=== PATIENT | female | born 1945 | race Caucasian/White ===

== ENCOUNTER 2017-07-26 21:53 | Emergency (ER) | payer MEDICARE, BC ==
[2017-07-26] MEDS ORDERED: Lidocaine 1% PF 5 ML VIAL ONE (23:31)
[2017-07-26] MEDS ORDERED: Lidocaine 1% w/Epinephrine 1:100K 20 ML VIAL ONE (23:59)
--- NOTE | 2017-07-27 | RAD ---
THREE VIEWS RIGHT HAND: Indication: Tripped and fell slicing hand on a 1,2,3 Listoja wet primer powder blender. FINDINGS: Imaged remote appearing traumatic injury involving the triquetrum. There is two small ossific fragmen ts seen along the dorsal aspect of the ulnocarpal articulation. One of the intraarticular bodies diana ures 4.5 mm. The additional measures 2.3 mm. There is no acute fracture or subluxation evident. There is scattered osteoarthrosis of the right hand. IMPRESSION: No acute osseous abnormality. Chronic findings as above. POS: [facility]
[2017-07-27] MEDS ORDERED: Adacel (T-DAP) 0.5 ML VIAL ONE (00:05)
== END 2017-07-27 00:51 | disposition home or self-care (01) ==
LOC: ERS 21:53
DX: S61.412A Laceration without foreign body of left hand, initial encounter (principal); R20.2 Paresthesia of skin; E78.5 Hyperlipidemia, unspecified; E03.9 Hypothyroidism, unspecified; E11.9 Type 2 diabetes mellitus without complications; Z79.899 Other long term (current) drug therapy; Z79.4 Long term (current) use of insulin; W26.8XXA Contact with other sharp object(s), not elsewhere classified, initial encounter
CPT/HCPCS: 12002; 90471; 90715; J2001

== ENCOUNTER 2017-08-14 09:41 | Day surgery (SDC) | payer MEDICARE, BC ==
[2017-08-13 10:41] VITALS: BMI 41.1
[2017-08-14 12:56] LABS: #Eosinphils 0.2 thou/uL (0.0-0.7); #Lymphocytes 2.2 thou/uL (1.20-3.40); #Monocytes 0.6 thou/uL (0.11-0.59); #Neutrophils 2.8 thou/uL (1.40-6.50); %Basophils 0.6 % (0.0-1.0); %Eosinophils 3.7 % (0.0-10.0); %Monocytes 9.9 % (0.0-10.0); %Neutrophils 47.8 % (42.0-75.0); Hemoglobin 13.6 g/dL (12.0-16.0); Mean Corpuscular HGB CONC 35.5 g/dL (32.0-36.0); Mean Corpuscular Hemoglobin 30.9 pg (27.0-31.0); Mean Corpuscular Volume 86.8 fl (81.0-99.0); Mean Platelet Volume 8.8 fL (7.4-10.4); Platelet Count 112 thou/uL (130-400); RBC Distribution Width 11.2 % (11.5-14.5); Red Blood Cell (RBC) Count 4.41 mill/uL (4.20-5.40); White Blood Cell (WBC) Count 5.8 thou/uL (4.8-10.8)
[2017-08-14 13:10] LABS: Anion Gap 10 mmol/L (10-20); BUN (Urea Nitrogen) 18 mg/dL (9.8-20.1); Calc. Creatinine Clearance 143 mL/min (70-130); Calcium 9.7 mg/dL (7.8-10.44); Carbon Dioxide 28 mmol/L (23-31); Chloride 108 mmol/L (98-107); Estimated GFR-MDRD Greater than 90; Glucose 69 mg/dL (80-115); Potassium 3.9 mmol/L (3.5-5.1); Sodium 142 mmol/L (136-145)
[2017-08-14] MEDS ORDERED: Dextrose 50% Abboject 50 ML SYRINGE ONE (13:23)
[2017-08-14 13:35] LABS: Bilirubin Negative (Negative); Blood, Urine Negative (Negative); Clarity CLOUDY (Clear); Glucose, Urine (Dipstick) Negative (Negative); Leukocyte Negative (Negative); Nitrite Negative (Negative); Protein, Urine (Dipstick) Negative (Neg-Trace); Specific Gravity, Urine 1.018 (1.002-1.036); Urobilinogen 0.2 mg/dL (0.2-1.0)
[2017-08-14 13:42] LABS: Bacteria/HPF 1+ HPF (None Seen); Hyaline Casts/LPF 4-6 HYALINE CAST LPF (0-3 Hyaline); Pathc Cast-AUWi Flag 1.59 (0-2.49); RBC/HPF 0-3 HPF (0-3); WBC/HPF 0-3 HPF (0-3)
[2017-08-14] MEDS ORDERED: Ondansetron HCl/PF 4 MG/2 ML Vial ONE ×2 (13:43→17:25)
[2017-08-14] MEDS ORDERED: Bacitracin Zinc Ointment 30 gm TUBE ONE (13:45)
[2017-08-14] MEDS ORDERED: Bupivacaine PF 0.5% 30 ML VIAL ONE (13:45)
[2017-08-14] MEDS ORDERED: Betamet Acet/Betamet Na Ph 30 MG/5 ML VIAL ONE (13:45)
[2017-08-14] MEDS ORDERED: Fentanyl 100 MCG/2 ML VIAL ONE (13:46)
[2017-08-14] MEDS ORDERED: CEFAZOLIN/Water 2 GM/20 ML SYRINGE ONE (13:56)
[2017-08-14] MEDS ORDERED: Metoclopramide HCl 10 MG/2 ML VIAL ONE ×2 (13:56→17:25)
[2017-08-14] MEDS ORDERED: Ketorolac Tromethamine 30 MG/ML VIAL ONE ×2 (16:08→17:25)
[2017-08-14] MEDS ORDERED: ePHEDrine/0.9% NaCl/PF SYRINGE 50 mg/10 ml ONE (17:25)
[2017-08-14] MEDS ORDERED: Lidocaine 1% PF 5 ML VIAL ONE (17:25)
[2017-08-14] MEDS ORDERED: PROPOFOL 200 MG/20 ML VIAL ONE (17:25)
--- NOTE | 2017-08-15 16:59 | OP ---
DATE OF PROCEDURE: 08/14/2017 PREOPERATIVE DIAGNOSIS: Right index finger and long finger digital nerve laceration with the long fi nger being radial and the index finger being ulnar, thus occupying near the common digital nerve bran bharathi point. FINDINGS: Just distal to the branching point, individual laceration of both nerves have listed invol ving the second webspace. PROCEDURES PERFORMED: 1. Digital nerve neuroplasty long finger, radial side. 2. Digital nerve repair microscopic, long finger, radial side. 3. Digital nerve neuroplasty, index finger, ulnar side. 4. Digital nerve microscopic repair, index finger, ulnar side. 5. There will be removal of sutures of intraoperative, not by the surgical placing. ESTIMATED BLOOD LOSS: 5 mL. INJECTABLE: A 5 mL before and 15 after the procedure with the wound closed. ANESTHESIA: General LMA technique augmented by 15 mL 0.5% Marcaine block, 10 before the incision and 15 afterwards. DESCRIPTION OF PROCEDURE: After successful general LMA technique by [place] Anesthesia as listed ab ove, the limb was prepped and draped. Timeout was done appropriately. We removed the previous Prole ne sutures placed by another provider, and then Dr. Wallace began zigzag incision involving the 1 cm laceration going distally and a Felice's guide incisions. With tourniquet we had excellent visuali zation, we could found that there was hematoma around a partial left radial almost 50% long finger ra dial digital nerve while the small finger ulnar digital nerve was lacerated after neuroplasty reveale d this with a heavy hematoma around it and then we could easily see the gap formation. Resectable ph ase of nerve as needed 1 mm or less to perform ankle repair and then began with a 9-0 Ethibond suture first for the index finger, nerve without involving the long finger or other fingers. Then, once we completed the index finger, using same microscopic techniques to repair. The patient then had a bul ky dressing applied. It was confirmed with full extension and tension on the nerve repair and there was none, then left the operating room with a splint almost a dorsal block at -2 degrees MP joint ext ension, completely cover wound and no evidence of anesthetic or operative complication.
--- NOTE | 2017-08-16 08:53 | EKG ---
Test Reason : PREOP Blood Pressure : / mmHG Vent. Rate : 059 BPM Atrial Rate : 059 BPM P-R Int : 178 ms QRS Dur : 102 ms QT Int : 408 ms P-R-T Axes : 053 -07 080 degrees QTc Int : 403 ms Sinus bradycardia Nonspecific T wave abnormality Abnormal ECG Confirmed by FOZIA CORTEZ MD ([id number]) on 08/16/2017 8:53:35 AM Referred By: ELIZABETH Confirmed By:FOZIA CORTEZ MD
== END 2017-08-14 17:47 | disposition home or self-care (01) ==
LOC: SDC 09:41
PROVIDERS: ATTEND Orthopaedic Surgery Hand Surgery
PROC: 01Q60ZZ Repair Radial Nerve, Open Approach (ICD-10-PCS; principal; 2017-08-14)
PROC: 01Q40ZZ Repair Ulnar Nerve, Open Approach (ICD-10-PCS; 2017-08-14)
DX: S64.490A Injury of digital nerve of right index finger, initial encounter (principal); S64.492A Injury of digital nerve of right middle finger, initial encounter; S60.221A Contusion of right hand, initial encounter; E10.9 Type 1 diabetes mellitus without complications; E03.9 Hypothyroidism, unspecified; Z79.82 Long term (current) use of aspirin; Z79.899 Other long term (current) drug therapy
CPT/HCPCS: 80048; 81001; 85025; 93005; 93010; J0131; J0702; J1885; J2001; J2405; J2704; J2765; J3010; S0020

== ENCOUNTER 2017-10-27 14:47 | Outpatient (CLI) | payer MEDICARE, BC ==
--- NOTE | 2017-10-27 15:38 | RAD ---
TWO VIEWS RIGHT HIP: DATE: 10/27/17. HISTORY: Right hip pain after a fall in July 2017. FINDINGS: There is right hip osteoarthritis. No acute fracture or dislocation is seen. Degenerative changes i n the pubic symphysis with mild right sacroiliac joint osteoarthritis. Phleboliths overlie the right hemipelvis. Calcifications overlie the lateral subcutaneous soft tissues which may represent inject ion granulomata. Questionable linear focus of gas density overlying the right gluteal region lateral to the right iliac wing. IMPRESSION: 1. Osteoarthritis right hip without evidence of an acute osseous abnormality. 2. Question of subcutaneous gas lateral aspect right hip. This could be artifactual, but correlatio n for a recent injection or injury is suggested. POS: [facility]
== END 2017-10-27 14:48 | disposition home or self-care (01) ==
LOC: TBSIIMAG 14:47
PROVIDERS: ATTEND Neurological Surgery
DX: M25.551 Pain in right hip (principal); M16.11 Unilateral primary osteoarthritis, right hip

== ENCOUNTER 2017-11-19 12:10 | Outpatient (CLI) | payer MEDICARE, BC ==
[~2017-11-19 12:10] MED LIST: Gadobenate Dimeglumine 529 MG/1 ML (20ML VIAL) ONE
[2017-11-19 13:07] LABS: Estimated GFR-MDRD - POC Greater than 90
== END 2017-11-19 12:11 | disposition home or self-care (01) ==
LOC: BICMRI 12:10
PROVIDERS: ATTEND Neurological Surgery
DX: M51.16 Intervertebral disc disorders with radiculopathy, lumbar region (principal); M48.061 Spinal stenosis, lumbar region without neurogenic claudication
CPT/HCPCS: 72158; 82565; A9579

== ENCOUNTER 2018-11-24 12:50 | Outpatient (CLI) | payer OTHER | END 2018-11-24 12:51 | disposition home or self-care (01) | LOC: DTY/OP 12:50 | PROVIDERS: ATTEND Surgery | DX: E66.01 Morbid (severe) obesity due to excess calories (principal) | CPT/HCPCS: 97802 ==

== ENCOUNTER 2018-12-14 10:13 | Outpatient (CLI) | payer MEDICARE, BC ==
--- NOTE | 2018-12-14 12:05 | RAD ---
EXAM: Chest PA and lateral: HISTORY: Preoperative exam COMPARISON: 06/28/2011 FINDINGS: Heart: Normal cardiac silhouette Aorta: Unremarkable Pulmonary vessels: Normal Costophrenic angles: Costophrenic angles are clear. Lungs: No masses or consolidation. Chronic changes of the lung parenchyma. Pneumothorax: No pneumothorax Osseous structures: No osseous abnormalities. Right humeral prosthesis is noted. IMPRESSION: No acute cardiopulmonary process.
[2018-12-14 12:20] LABS: #Eosinphils 0.1 thou/uL (0.0-0.7); #Lymphocytes 2.1 thou/uL (1.20-3.40); #Monocytes 0.6 thou/uL (0.11-0.59); #Neutrophils 3.8 thou/uL (1.40-6.50); %Basophils 0.4 % (0.0-1.0); %Eosinophils 1.9 % (0.0-10.0); %Lymphocytes 31.7 % (21.0-51.0); %Monocytes 9.1 % (0.0-10.0); Hemoglobin 14.2 g/dL (12.0-16.0); Mean Corpuscular HGB CONC 33.1 g/dL (32.0-36.0); Mean Corpuscular Hemoglobin 29.3 pg (27.0-31.0); Mean Corpuscular Volume 88.5 fL (78.0-98.0); Mean Platelet Volume 9.6 fL (7.4-10.4); Platelet Count 122 thou/uL (130-400); RBC Distribution Width 11.7 % (11.5-14.5); Red Blood Cell (RBC) Count 4.84 mill/uL (4.20-5.40); White Blood Cell (WBC) Count 6.6 thou/uL (4.8-10.8)
[2018-12-14 12:28] LABS: Hemoglobin A1c 6.9 % (4.0-6.0)
[2018-12-14 12:43] LABS: ALT (SGPT) 32 U/L (8-55); AST (SGOT) 34 U/L (5-34); Albumin 4.3 g/dL (3.4-4.8); Alkaline Phosphatase 50 U/L (40-150); Anion Gap 14 mmol/L (10-20); BUN (Urea Nitrogen) 24 mg/dL (9.8-20.1); Bilirubin, Direct 0.4 mg/dL (0.1-0.3); Bilirubin, Total 0.6 mg/dL (0.2-1.2); Calc. Creatinine Clearance 0 mL/min (70-130); Calcium 9.7 mg/dL (7.8-10.44); Carbon Dioxide 23 mmol/L (23-31); Chloride 103 mmol/L (98-107); Estimated GFR-MDRD 82; Globulin 2.8 g/dL (2.4-3.5); Glucose 123 mg/dL (83-110); Protein, Total 7.1 g/dL (6.0-8.3); Sodium 136 mmol/L (136-145)
== END 2018-12-14 10:14 | disposition home or self-care (01) ==
LOC: LABBT 10:13
PROVIDERS: ATTEND Surgery
DX: Z01.818 Encounter for other preprocedural examination (principal); E11.9 Type 2 diabetes mellitus without complications; Z68.42 Body mass index [BMI] 45.0-49.9, adult
CPT/HCPCS: 71046; 80053; 80076; 83036; 85025; 93005; 93010

== ENCOUNTER 2018-12-14 11:00 | Inpatient (IN) | payer MEDICARE, BC ==
[2018-12-23] MEDS ORDERED: Heparin 5,000 UNITS/ML VIAL ONE (08:36)
[2018-12-23] MEDS ORDERED: Scopolamine 1.5 mg/72 hour Patch ONE (10:02)
[2018-12-23] MEDS ORDERED: Fentanyl 100 MCG/2 ML VIAL ONE ×3 (10:02→12:39)
[2018-12-23] MEDS ORDERED: Bupivacaine/Epinephrine 0.25% 30 ML VIAL ONE (10:12)
[2018-12-23] MEDS ORDERED: Ondansetron HCl/PF 4 MG/2 ML Vial IVP PRN (11:50)
[2018-12-23] MEDS ORDERED: Promethazine HCl 25 MG/ML VIAL IM PRN ×3 (11:50→12:22)
[2018-12-23] MEDS ORDERED: Promethazine HCl 25 MG/ML VIAL SLOW IVP PRN (11:50)
[2018-12-23] MEDS ORDERED: Dextrose 50% Abboject 50 ML SYRINGE SLOW IVP PRN (12:10)
[2018-12-23] MEDS ORDERED: Ondansetron PF 4 MG/2 ML Vial IVP PRN ×2 (12:10→12:22)
[2018-12-23] MEDS ORDERED: hydrALAZINE 20 MG/ML VIAL SLOW IVP PRN (12:10)
[2018-12-23] MEDS ORDERED: Hydrocodone-Acetamin 15 ML UDCUP PO PRN (12:10)
[2018-12-23] MEDS ORDERED: Dextrose 5% in Water 1,000 ML IV PRN (12:10)
[2018-12-23] MEDS ORDERED: diphenhydrAMINE 50 MG/ML VIAL IVP PRN (12:10)
[2018-12-23] MEDS ORDERED: Naloxone HCl 0.4 mg/ml Vial IV PRN (12:22)
[2018-12-23] MEDS ORDERED: fentaNYL Citrate/PF 2,000 MCG in Sodium Chloride 0.9% 60 ML IV PRN (12:22)
[2018-12-23] MEDS ORDERED: diphenhydrAMINE 50 MG/ML VIAL IM/IV PRN (12:22)
[2018-12-23] MEDS ORDERED: diphenhydrAMINE 25 MG CAP PO PRN (12:22)
[2018-12-23] MEDS ORDERED: Zolpidem Tartrate 5 MG TAB PO PRN (12:22)
[2018-12-23 15:18] VITALS: BMI 44.7
[2018-12-23] MEDS ORDERED: CEFAZOLIN 2 GM in Premix Bag 1 BAG IVPB SCH (16:00)
[2018-12-23] MEDS: CEFAZOLIN 2 GM in Premix Bag 1 BAG IVPB SCH (17:05)
[2018-12-23] MEDS: Ketorolac Tromethamine 30 MG/ML VIAL IVP SCH ×2 (17:05→23:43)
[2018-12-23] MEDS: D5 1/2 NS w/20 mEq KCL 1,000 ML IV SCH ×2 (17:05→20:18)
[2018-12-24] MEDS: D5 1/2 NS w/20 mEq KCL 1,000 ML IV SCH ×2 (00:33→04:03)
[2018-12-24] MEDS: CEFAZOLIN 2 GM in Premix Bag 1 BAG IVPB SCH (00:33)
[2018-12-24 05:26] LABS: #Eosinphils 0.1 thou/uL (0.0-0.7); #Lymphocytes 1.6 thou/uL (1.20-3.40); #Monocytes 0.6 thou/uL (0.11-0.59); #Neutrophils 4.1 thou/uL (1.40-6.50); %Basophils 0.2 % (0.0-1.0); %Eosinophils 0.9 % (0.0-10.0); %Lymphocytes 24.8 % (21.0-51.0); %Monocytes 9.7 % (0.0-10.0); %Neutrophils 64.4 % (42.0-75.0); Mean Corpuscular HGB CONC 34.5 g/dL (32.0-36.0); Mean Corpuscular Hemoglobin 30.6 pg (27.0-31.0); Mean Corpuscular Volume 88.8 fL (78.0-98.0); Mean Platelet Volume 9.7 fL (7.4-10.4); Platelet Count 96 thou/uL (130-400); RBC Distribution Width 11.2 % (11.5-14.5); Red Blood Cell (RBC) Count 3.91 mill/uL (4.20-5.40); White Blood Cell (WBC) Count 6.3 thou/uL (4.8-10.8)
[2018-12-24] MEDS: Ketorolac Tromethamine 30 MG/ML VIAL IVP SCH ×2 (05:29→11:51)
[2018-12-24 05:47] LABS: Anion Gap 9 mmol/L (10-20); BUN (Urea Nitrogen) 11 mg/dL (9.8-20.1); Calc. Creatinine Clearance 133 mL/min (70-130); Calcium 8.5 mg/dL (7.8-10.44); Carbon Dioxide 23 mmol/L (23-31); Chloride 107 mmol/L (98-107); Estimated GFR-MDRD 88; Glucose 181 mg/dL (83-110); Potassium 3.9 mmol/L (3.5-5.1); Sodium 135 mmol/L (136-145)
--- NOTE | 2018-12-24 07:47 | PDOC.GSPN ---
Surgery Progress Note: Subj - Subjective Narrative: Postoperative day 1: Patient is doing well with no abdominal pain. Some discomfort over the incision sites. She has been able to get and walk around in the hallways. She has not passed any flatus nor had a bowel movement. She denies any shortness of breath, nausea or vomiting. Patient remains NPO. No complaints brought up. Surgery Progress Note: Obj - Vital signs Vital signs: Vital Signs - Most Recent Temp Pulse Resp BP Pulse Ox 98.4 F 80 18 162/77 H 96 12/24/18 03:52 12/24/18 03:52 12/24/18 03:52 12/24/18 03:52 12/24/18 03:52 - Physical Exam General: no distress ENT: no congestion, normal pinna Neck: no bruits, no lymphadectomy Cardiovascular: regular rate and rhythm Respiratory: clear to auscultation, breath sounds present Abdomen: soft, non tender, positive bowel sounds Wound: dressing clean,dry,intact, healing well Surgery Progress Note: Results - Labs Result Diagrams: 12/24/18 04:53 12/24/18 04:53 Lab results: Laboratory Results - last 24 hr 12/23/18 12/24/18 12/24/18 20:57 04:53 04:53 WBC 6.3 RBC 3.91 L Hgb 12.0 Hct 34.8 L MCV 88.8 MCH 30.6 MCHC 34.5 RDW 11.2 L Plt Count 96 L MPV 9.7 Neutrophils % 64.4 Neutrophils % (Manual) Not Reportable Lymphocytes % 24.8 Monocytes % 9.7 Eosinophils % 0.9 Basophils % 0.2 Neutrophils # 4.1 Lymphocytes # 1.6 Monocytes # 0.6 H Eosinophils # 0.1 Basophils # 0.0 Sodium 135 L Potassium 3.9 Chloride 107 Carbon Dioxide 23 Anion Gap 9 L BUN 11 Creatinine 0.66 Estimated GFR (MDRD) 88 Glucose 181 H POC Glucose 151 H Calcium 8.5 Surgery Progress Note: A/P - Problem (1) Status post gastrectomy Current Visit: Yes Status: Acute - Plan Plan: keep monitoring the patient. Will keep an eye on blood pressure since it has been elevated during the night, but it is normal on the latest reading. Will advance to clear liquids when patient experiences flatus. Encourage ambulation and use of the incentive spirometer. Continue with maintenance fluids. Will order a gastrograffin swallow study today.
--- NOTE | 2018-12-24 08:20 | OP ---
DATE OF PROCEDURE: 12/23/2018 PREOPERATIVE DIAGNOSIS: Morbid obesity. PROCEDURE PERFORMED: Laparoscopic sleeve gastrectomy with esophagogastroscopy. INDICATIONS: A 73-year-old female, morbidly obese, who has attempted multiple weight loss programs without success. FINDINGS: 38-Palestinian bougie used. DESCRIPTION OF PROCEDURE: After informed consent was obtained, the patient was taken to the operating room and given general endotracheal anesthesia and placed in supine position. Abdomen was prepped and draped in the usual fashion. Local anesthesia infiltrated subcutaneously and deep. A 12 mm incision was performed approximately 8 inches above the xiphoid slightly to the left. Veress needle inserted. Drop test performed. Pneumoperitoneum was created to a volume of 2 L of carbon dioxide. Utilizing a bladeless 12-mm trocar and 0-degree laparoscope, direct visual entry in the abdominal cavity was performed. Pneumoperitoneum was then created to a pressure of 15 mmHg and the patient placed in steep reverse Trendelenburg position. Lary liver retractor inserted. Left lobe of the liver retracted superiorly. The pylorus identified. A 12 mm port placed on the right beneath it and two 12s placed left subcostal. The omentum was taken off the greater curvature 5 cm from the pylorus utilizing the LigaSure. Short gastrics divided with LigaSure and left crura defined with LigaSure. A 38-Palestinian bougie inserted, directed into the antrum. The linear 60-mm green-load stapler was used to divide the antrum to the bougie, gold load along the bougie, and a series of blues through the angle of His. Intraoperative endoscopy performed. The video endoscope inserted under direct vision and advanced into the sleeve. Staple line inspected. There was no bleeding. Staple line then tested by inflating the new stomach with pressurized air under water. There was no air leak. Stomach decompressed. Scope removed. The remnant stomach was removed from the abdomen through the left lateral port site. The fascia closed with 0 Vicryl suture and the GraNee needle. Trocars and retractors removed. Skin closed with interrupted 4-0 Rapide. Dermabond applied. The patient tolerated the procedure well, transferred to Recovery in good condition. Sponge and needle count verified correct x2. Job ID: [id number]
--- NOTE | 2018-12-24 08:27 | RAD ---
15 cc Gastrografin swallow: 12/24/2018 COMPARISON: None HISTORY: Evaluate for leak or obstruction following gastric sleeve procedure FINDINGS: The patient ingested 15 cc of Gastrografin. Contrast media traverses the gastroesophageal j unction without delay. Contrast media fills the postoperative stomach with no evidence for leak or obstruction. Contrast media extends into proximal duodenum. IMPRESSION: No evidence for leak or obstruction following gastric sleeve procedure.
[2018-12-24] MEDS ORDERED: Enoxaparin Sodium 40 MG/0.4 ML SYRINGE SC SCH (09:00)
[2018-12-24] MEDS ORDERED: Pantoprazole 40 MG VIAL IVP SCH (09:00)
[2018-12-24 12:21] VITALS: BP 131/74; TEMP 98.1
--- NOTE | 2018-12-25 02:48 | DIS ---
DATE OF ADMISSION: 12/23/2018 DATE OF DISCHARGE: 12/24/2018 DISCHARGE DIAGNOSIS: Morbid obesity. PROCEDURES DURING ADMISSION: Laparoscopic sleeve gastrectomy, intraoperative esophagogastroscopy, and postoperative Gastrografin swallow. HOSPITAL COURSE: The patient was admitted, taken to the operating room where she underwent a sleeve gastrectomy. Postoperatively, she has done well. X-ray was fine. Started on liquids, tolerating well. She is discharged home on hydrocodone and Zofran. She will follow up with me in 2 weeks. Job ID: [id number]
== END 2018-12-24 12:20 | disposition home or self-care (01) | DRG 621 ==
LOC: SURG A 12-23 07:39
PROVIDERS: ADMIT Surgery; ATTEND Surgery
PROC: 0DB64Z3 Excision of Stomach, Percutaneous Endoscopic Approach, Vertical (ICD-10-PCS; principal; 2018-12-23)
DX: E66.01 Morbid (severe) obesity due to excess calories (principal); Z68.41 Body mass index [BMI] 40.0-44.9, adult; E11.9 Type 2 diabetes mellitus without complications; I10 Essential (primary) hypertension; E78.5 Hyperlipidemia, unspecified; E03.9 Hypothyroidism, unspecified; M19.90 Unspecified osteoarthritis, unspecified site; Z90.710 Acquired absence of both cervix and uterus; Z79.4 Long term (current) use of insulin; Z79.82 Long term (current) use of aspirin; Z79.899 Other long term (current) drug therapy
CPT/HCPCS: 36415; 36416; 74241; 80048; 85025; 88307; 88312; 94760; C9113; J0690; J1644; J1650; J1885; J3010; J3490

== ENCOUNTER 2019-04-22 10:32 | Outpatient (CLI) | payer MEDICARE, BC ==
--- NOTE | 2019-04-22 10:55 | RAD ---
THREE VIEWS LUMBAR SPINE: COMPARISON: 03/25/2016. HISTORY: Lumbar stenosis. Neurogenic claudication. FINDINGS: Five lumbar-type vertebrae. Moderate loss of disc space height and osteophyte formation at L2-L3. Mil d degenerative change at L1-L2. Spondylolisthesis: L2-L3: Neutral: 4.1 mm of retrolisthesis, flexion 3.7 mm of retrolisthesis, extension 2.9 mm of retro listhesis. L4-L5: 2.9 mm of anterolisthesis, flexion 4.3 mm of anterolisthesis, extension 2.9 mm of anterolisthe sis. Degenerative changes of posterior elements at L3-L4, L4-L5 and L5-S1. When compared to the previous examination, the degree of spondylolisthesis has developed. IMPRESSION: Spondylolisthesis which has developed since the previous examination. Transcribed Date/Time: 04/22/2019 11:33 AM
--- NOTE | 2019-04-22 11:21 | MRI ---
MRI LUMBAR SPINE NONCONTRAST: HISTORY: Lumbar stenosis with neurogenic claudication. Low back pain that wraps around into the left groin. COMPARISON: 03/25/2016. FINDINGS: Appropriate T1 marrow signal intensity of the lumbar vertebrae. Lumbar spine vertebral body height is maintained. No fracture. Stable intrinsic T1 and T2 hyperintense focus along the right aspect of the T12 vertebral body, compatible with hemangioma. There are type I Modic changes along the left asp ect of the L2-L3 disc space. Previously noted type I Modic changes along the right aspect of the L3-L4 disc space currently have signal characteristics is compatible with type II Modic changes. Spondylolisthesis: L1-L2: 2 mm or retrolisthesis. L2-L3: 4.5 mm of retrolisthesis. L3-L4: 5.2 mm of retrolisthesis. L4-L5: 1.9 mm of anterolisthesis. Conus medullaris terminates at the L1-L2 disc space. Appropriate signal intensity of the visualized paraspinal muscles and solid organs. Laminectomy defect at L2-L3, L3-L4, L4-L5. T12-L1:Adequate disc hydration. No significant central canal stenosis or significant neural foraminal narrowing. L1-L2:Desiccation with mild loss of disc space height. Broad-based disc bulge, ligament flavum thicke jean pierre and facet hypertrophy result in mild central canal stenosis. Mild to moderate bilateral neural foraminal narrowing. L2-L3:Disc desiccation with mild loss of disc space height. Posterior laminectomy defect. No signific ant central canal stenosis. Moderate to severe bilateral neural foraminal narrowing. L3-L4:Desiccation with severe loss of disc space height. Broad-based disc bulge. Posterior laminectom y defect. No significant central canal stenosis. Moderate to severe right and left neural foraminal narrowing. L4-L5:Desiccation with mild loss of disc space height. Broad-based disc bulge with a midline inferior disc extrusion. There is encroachment upon both subarticular zones with mass effect upon bilateral traversing L5 nerve roots. Posterior laminectomy defect is identified. There is moderate to severe ce ntral canal stenosis. Right greater than left facet hypertrophy with fluid in both facet joints. Moderate to severe right and moderate left neural foraminal narrowing. L5-S1:Desiccation with moderate loss of disc space height. Broad-based disc bulge with a central disc protrusion. There is encroachment upon both subarticular zones, left greater than right. There is a small annular fissure involving the disc at the level of the left subarticular zone, adjacent to th e traversing left S1 nerve root. No significant stenosis of the thecal sac. Moderate right and moderate to severe left neural foraminal narrowing. IMPRESSION: 1. Multilevel spondylolisthesis as above. 2. Multilevel laminectomy defects as above. 3. Moderate to severe central canal stenosis at L4-L5. Narrowing of both subarticular zones with mass effect upon bilateral traversing L5 nerve roots. 4. Small annular fissure involving the L5-S1 disc, at the level of the left subarticular zone. The an nular fissure is adjacent to traversing left S1 nerve root. Transcribed Date/Time: 04/22/2019 11:45 AM
== END 2019-04-22 10:33 | disposition home or self-care (01) ==
LOC: TBSIIMAG 10:32
PROVIDERS: ATTEND Nurse Practitioner Family
DX: M48.062 Spinal stenosis, lumbar region with neurogenic claudication (principal); M43.16 Spondylolisthesis, lumbar region; Q05.7 Lumbar spina bifida without hydrocephalus; Z98.890 Other specified postprocedural states
CPT/HCPCS: 72100; 72148

== ENCOUNTER 2019-07-01 07:17 | Day surgery (SDC) | payer MEDICARE, BC ==
[2019-06-30 10:03] VITALS: BMI 33.3
--- NOTE | 2019-06-30 19:03 | HP ---
HISTORY OF PRESENT ILLNESS: Ms. Lopez is known to our practice lumbar decompression who returns now with a combination of symptoms axial back pain that is just off to the left as well as neurogenic claudication. She has been treating this with epidural steroid injections by Dr. Bermudez, which were helpful up until fall of this past year as well as Tylenol 3, which she feels takes the edge off enough to get some rest at night. She denies any obvious radicular pain and no numbness to either lower extremity. Pain is worsened with standing or walking. She feels her legs tire out and getting wobbly. She has a new MRI that reveals prior surgery from L3-L5 as well as multilevel stenosis to varying degrees, most significant at L4-L5 where she has severe lateral recess stenosis and [id number] central canal stenosis. PHYSICAL EXAMINATION: GENERAL: She is alert and oriented x3. NEUROLOGICAL: Gait is stooped and severely antalgic. Lower extremity motor exam is normal. PAST MEDICAL HISTORY: Significant for diabetes, chronic pain syndrome, osteoarthritis. PAST SURGICAL HISTORY: Hand surgery, hysterectomy, lumbar decompression, bilateral knee replacement, shoulder replacement. CURRENT MEDICATIONS: Humalog, Tarceva, simvastatin, fosinopril, hydrochlorothiazide, Synthroid, gabapentin, tramadol, Tylenol. ALLERGIES: NO KNOWN DRUG ALLERGIES. ASSESSMENT: Spinal stenosis. PLAN: Dr. Kuo met with the patient, reviewed imaging, advocated for L4-L5 decompression. He explained to the patient the risks, benefits, and alternatives to the procedure. The patient expressed understanding and elected to move forward with surgery as discussed. I do believe the patient is mentally competent and capable of making medical decisions for herself. We will move forward with surgery as planned. Job ID: [id number]
[2019-07-01] MEDS ORDERED: Bupivacaine PF 0.5% 30 ML VIAL ONE (10:13)
[2019-07-01] MEDS ORDERED: Thrombin 5000 UNITS/5 ML VIAL ONE (10:13)
[2019-07-01] MEDS ORDERED: EPINEPHrine 1 MG/ML AMP ONE (10:13)
[2019-07-01] MEDS ORDERED: Dexamethasone 20 MG/5 ML VIAL ONE (10:26)
[2019-07-01] MEDS ORDERED: Rocuronium Bromide 10 MG/ML (10ML VIAL) ONE (10:26)
[2019-07-01] MEDS ORDERED: Glycopyrrolate 0.2 MG/ML 5 ML SYRINGE ONE (10:26)
[2019-07-01] MEDS ORDERED: PHENYLEPHRINE-NS 100 MCG/ML 10 ML SYRINGE ONE (10:26)
[2019-07-01] MEDS ORDERED: Ondansetron PF 4 MG/2 ML Vial ONE (10:26)
[2019-07-01] MEDS ORDERED: PROPOFOL 200 MG/20 ML VIAL ONE (10:26)
[2019-07-01] MEDS ORDERED: Lidocaine 1% PF 5 ML VIAL ONE (10:26)
[2019-07-01] MEDS ORDERED: EPHEDRINE 25 MG/5 ML SYRINGE ONE (10:26)
[2019-07-01] MEDS ORDERED: Fentanyl 100 MCG/2 ML VIAL ONE ×2 (10:26→11:47)
[2019-07-01] MEDS ORDERED: Polyethylene Glycol OPTH DROP 15 ML BOT L EYE PRN (14:22)
--- NOTE | 2019-07-01 14:53 | OP ---
DATE OF PROCEDURE: 07/01/2019 LITHOGRAPH PRINTER: Adama Alarcon PA-C INDICATION: Pain. DIAGNOSIS: Lumbar stenosis. PROCEDURE PERFORMED: Reoperation of L4-L5 decompression. ANESTHESIA: General. DESCRIPTION OF PROCEDURE: The patient was brought into the operating room and placed under general anesthesia. She was flipped from the supine to prone position on the operating room table. An old portion of her linear incision was identified and prepped and draped. Following an appropriate preoperative pause, the incision was created. The soft tissues were swept away from midline. Self-retaining retractors were placed in the wound for optimal exposure. After confirming the appropriate level with C-arm fluoroscopy, high-speed cutting drill bit as well as 2, 3, and 4 mm Kerrisons were used to complete the laminectomy defect at L4-L5, which extended down to the bottom of L5. After completing the decompression, the wound was irrigated. Hemostasis was maintained throughout. The wound was then closed in anatomic layers and a pressure dressing was applied. There were no known procedural complications. Job ID: [id number]
== END 2019-07-01 14:45 | disposition home or self-care (01) ==
LOC: SDC 07:17
PROVIDERS: ATTEND Neurological Surgery
PROC: 01NB0ZZ Release Lumbar Nerve, Open Approach (ICD-10-PCS; principal; 2019-07-01)
DX: M48.061 Spinal stenosis, lumbar region without neurogenic claudication (principal); E11.9 Type 2 diabetes mellitus without complications; G89.4 Chronic pain syndrome; M19.90 Unspecified osteoarthritis, unspecified site; Z79.82 Long term (current) use of aspirin; Z79.899 Other long term (current) drug therapy; Z96.611 Presence of right artificial shoulder joint; Z96.653 Presence of artificial knee joint, bilateral; Z98.84 Bariatric surgery status
CPT/HCPCS: 76000; 93005; 93010; J0171; J0690; J1100; J2001; J2405; J2704; J3010; S0020

== ENCOUNTER 2021-04-04 13:52 | Outpatient (CLI) | payer MEDICARE ==
[2021-04-04 15:07] LABS: Estimated GFR-MDRD - POC Greater than 90
== END 2021-04-04 13:53 | disposition home or self-care (01) ==
LOC: TBSIIMAG 13:52
PROVIDERS: ATTEND Specialist
DX: M51.16 Intervertebral disc disorders with radiculopathy, lumbar region (principal); M47.816 Spondylosis without myelopathy or radiculopathy, lumbar region; M51.36 Other intervertebral disc degeneration, lumbar region; M48.061 Spinal stenosis, lumbar region without neurogenic claudication; M41.9 Scoliosis, unspecified; Z98.890 Other specified postprocedural states; Z98.1 Arthrodesis status
CPT/HCPCS: 72158; 82565

== ENCOUNTER 2021-05-10 12:15 | Outpatient (CLI) | payer MEDICARE | END 2021-05-10 12:16 | disposition home or self-care (01) | LOC: BICRAD 12:15 | PROVIDERS: ATTEND Specialist | DX: M48.062 Spinal stenosis, lumbar region with neurogenic claudication (principal); M51.16 Intervertebral disc disorders with radiculopathy, lumbar region; M47.26 Other spondylosis with radiculopathy, lumbar region; M43.16 Spondylolisthesis, lumbar region | CPT/HCPCS: 72110 ==

== ENCOUNTER 2021-09-10 10:13 | Outpatient (CLI) | payer MEDICARE ==
[2021-09-10 11:38] LABS: Hemoglobin 13.4 g/dL (12.0-15.5); Mean Corpuscular HGB CONC 33.3 g/dL (32.0-36.0); Mean Corpuscular Hemoglobin 29.4 pg (27.0-33.0); Mean Corpuscular Volume 88.2 fl (81.6-98.3); Mean Platelet Volume 11.7 fl (7.4-10.4); RBC Distribution Width 11.7 % (11.5-14.5); Red Blood Cell (RBC) Count 4.56 10x6/uL (3.90-5.03); White Blood Cell (WBC) Count 5.2 10x3/uL (3.5-10.5)
[2021-09-10 11:39] LABS: Platelet Count 108 10x3/uL (150-450)
[2021-09-10 11:47] LABS: Anion Gap 13 mmol/L (10-20); BUN (Urea Nitrogen) 22 mg/dL (9.8-20.1); Calc. Creatinine Clearance 0 mL/min (70-130); Calcium 9.2 mg/dL (7.8-10.44); Carbon Dioxide 25 mmol/L (23-31); Chloride 108 mmol/L (98-107); Glucose 153 mg/dL (83-110); Potassium 4.3 mmol/L (3.5-5.1); Sodium 142 mmol/L (136-145)
[2021-09-10 21:43] LABS: SARS-CoV-2 PCR by NAA Not Detected (NotDetected)
== END 2021-09-10 10:14 | disposition home or self-care (01) ==
LOC: LABBT 10:13
PROVIDERS: ATTEND Neurological Surgery
DX: Z01.818 Encounter for other preprocedural examination (principal); M54.16 Radiculopathy, lumbar region; Z20.822 Contact with and (suspected) exposure to COVID-19
CPT/HCPCS: 80048; 85027; 93005; U0003; U0005; 93010

== ENCOUNTER 2021-09-13 05:49 | Day surgery (SDC) | payer MEDICARE ==
[2021-09-11 15:11] VITALS: BMI 32.9
[2021-09-13] MEDS ORDERED: EPINEPHrine 1 MG/ML AMP ONE (06:13)
[2021-09-13] MEDS ORDERED: Bupivacaine PF 0.5% 30 ML VIAL ONE (06:13)
[2021-09-13] MEDS ORDERED: Thrombin 5000 UNITS/5 ML VIAL ONE (06:13)
[2021-09-13] MEDS ORDERED: fentaNYL Citrate/PF 100 MCG/2 ML SYRINGE ONE (06:31)
[2021-09-13] MEDS ORDERED: Sodium Chloride 0.9% 100 ML ONE ×2 (06:57→11:17)
[2021-09-13] MEDS ORDERED: CEFAZOLIN 2 GM VIAL ONE ×2 (06:57→11:17)
[2021-09-13] MEDS ORDERED: PROPOFOL 200 MG/20 ML VIAL ONE (07:12)
[2021-09-13] MEDS ORDERED: ePHEDrine 50 MG/ML VIAL ONE (07:12)
[2021-09-13] MEDS ORDERED: Glycopyrrolate 0.2 MG/ML 5 ML SYRINGE ONE ×2 (07:12)
[2021-09-13] MEDS ORDERED: Dexamethasone 20 MG/5 ML VIAL ONE (07:12)
[2021-09-13] MEDS ORDERED: Ondansetron PF 4 MG/2 ML Vial ONE (07:12)
[2021-09-13] MEDS ORDERED: Lidocaine 1% PF 5 ML VIAL ONE (07:12)
[2021-09-13] MEDS ORDERED: Rocuronium Bromide 10 MG/ML (10ML VIAL) ONE (07:12)
[2021-09-13] MEDS ORDERED: Fentanyl 100 MCG/2 ML VIAL ONE (09:01)
== END 2021-09-13 11:55 | disposition home or self-care (01) ==
LOC: SDC 05:49
PROVIDERS: ATTEND Neurological Surgery
PROC: 01NB0ZZ Release Lumbar Nerve, Open Approach (ICD-10-PCS; principal; 2021-09-13)
DX: M54.16 Radiculopathy, lumbar region (principal); M48.061 Spinal stenosis, lumbar region without neurogenic claudication; E03.9 Hypothyroidism, unspecified; E11.9 Type 2 diabetes mellitus without complications; M19.90 Unspecified osteoarthritis, unspecified site; Z79.01 Long term (current) use of anticoagulants; Z79.4 Long term (current) use of insulin; Z79.899 Other long term (current) drug therapy; Z98.84 Bariatric surgery status
CPT/HCPCS: 63030; 76000; 82962; C1713; C1776; 36416; J0171; J1100; J2405; J2704; J3010; J3490; S0020

== ENCOUNTER 2022-08-31 19:00 | Outpatient (CLI) | payer MEDICARE | END 2022-08-31 19:01 | disposition home or self-care (01) | LOC: SLEEPLAB 19:00 | PROVIDERS: ATTEND Internal Medicine Critical Care Medicine | DX: G47.33 Obstructive sleep apnea (adult) (pediatric) (principal); R53.83 Other fatigue; R06.83 Snoring; G47.10 Hypersomnia, unspecified; I10 Essential (primary) hypertension; E11.9 Type 2 diabetes mellitus without complications; I48.91 Unspecified atrial fibrillation; G47.00 Insomnia, unspecified | CPT/HCPCS: 95811 ==